=== PATIENT | female | born 1995 | race Caucasian/White ===

== ENCOUNTER 2016-07-14 08:24 | Emergency (ER) | payer SELFPAY ==
[2016-07-14 08:55] VITALS: TEMP 98; BMI 24.5
--- NOTE | 2016-07-14 09:28 | DIRPT ---
CLINICAL DATA: Status post fall down steps 2 days ago striking the posterior aspect of the knee; pain is worse with walking or standing ; images were obtained with the patient supine. EXAM: RIGHT KNEE - COMPLETE 4+ VIEW COMPARISON: None in PACs FINDINGS: The bones of the right knee are adequately mineralized. There is no acute fracture nor dislocation. There is no significant degenerative change. There is no joint effusion. The proximal fibula is intact. IMPRESSION: There is no acute or significant chronic bony abnormality of the right knee. If the patient's symptoms persist and remain unexplained, MRI may be a useful next imaging step. Electronically Signed By: Jaswinder Paul M.D. On: 07/14/2016 09:25
--- NOTE | 2016-07-14 11:18 | EDPRACDOC ---
- General Information Chief Complaint: Fall Stated Complaint: FALL (RT LEG PAIN) Time Seen by Provider: 07/14/16 11:10 Information Source: Patient Home Medications: Home Medications Azithromycin [Zithromax] 250 mg PO DAILY #6 tablet 05/04/16 Prednisone [Sterapred 10 mg/6 day pack] 21 tab PO DIR #1 pack 05/04/16 Tussionex [Tussionex Oral Suspension] 5 ml PO BID PRN #120 ml 05/04/16 Hydrocodone Bit/Acetaminophen [Lortab 5/325] 1 tab PO Q4-6H PRN #15 tab Hydrocodone Bit/Acetaminophen [Lortab 5/325] 1 tab PO Q4-6H PRN #15 tab Allergies/Adverse Reactions: Allergies Allergy/AdvReac Type Severity Reaction Status Date / Time ketorolac tromethamine Allergy Nausea only Verified 07/14/16 08:53 [From Toradol] tramadol Allergy Nausea only Verified 07/14/16 08:53 - History of Present Illness Onset: yesterday HPI: Pt states she fell on stairs yesterday and injured R knee. Denies numbness, hip , back pain, leg pain. Knee Problem Location: Right Mechanism: Reports: Blunt Trauma Circumstances: Reports: Fall, Spontaneous Relevant History: Reports: None Able to Bear Weight: Limited Pain Severity: Reports: Moderate Associated Signs & Symptoms: Reports: None ED Past Medical History - History Reviewed Yes Nurses notes reviewed and agree except as marked - Patient Medical History GI/ History: Reports: Kidney Stones Psychological History: Denies: Depression Additional Past Medical History: CHRONIC PAIN - Social Medical History Smoking Status: Heavy tobacco smoker (5 or more cigarettes/day or daily pipe/ cigar) ETOH: Social Substance Abuse: None EDM Review of Systems - Review of Systems Constitutional: No Symptoms Reported. negative: Fever, Chills, Weakness, Fatigue, Loss of Appetite Respiratory: No Symptoms Reported. negative: Cough, Brassy Cough, Barky Cough, Shortness of Breath, Wheezing, Hemoptysis Cardiovascular: No Symptoms Reported. negative: Chest Pain, Palpitations, Syncope, Edema, Orthopnea, PND, Skin Mottling, Cyanosis Gastrointestinal: No Symptoms Reported. negative: Pain, Constipation, Nausea, Vomiting, Diarrhea, Melena, Formula Intolerance Neurological: No Symptoms Reported. negative: Headache, Dizziness, Seizure, Numbness, Weakness, Speech Difficulty, Gait Difficulty Musculoskeletal: Knee Integumentary: No Symptoms Reported. negative: Itching, Rash, Bruising, Wound Allergic/Immunologic: No Symptoms Reported. negative: Hives, Itching Hematologic: No Symptoms Reported. negative: Lymphadenopathy, Easy Bruising, Easy Bleeding Psychiatric: No Symptoms Reported. negative: Anxiety, Depression, Hallucinations, Insomnia, Suicidal - Physical Exam Constitutional: Alert Oriented to: Time, Person, Place Last recorded Vital Signs: Last Vital Signs Temp 98 F 07/14/16 08:54 Pulse 74 07/14/16 08:54 Resp 20 07/14/16 08:54 BP 113/55 L 07/14/16 08:54 Pulse Ox 98 07/14/16 08:54 Oxygen Pulse Oxygen Saturation 98 O2 Device Room Air Oxygen Flow Rate Fraction of Inspired Oxygen ( FIO2) - HEENT Head: Normal ( normocephalic) - Respiratory/Cardiovascular Respiratory: Normal - CTA (BBS clear to auscultation without adventitious sounds ) Cardiovascular: Normal (RRR without murmur, gallop or rub) - Musculoskeletal Extremities: Normal (Normal tone, Pulses 2+ No cyanosis or edema, FROM) - Integumentary Skin: Normal, Warm, Dry Lymphatics: Normal (no adenopathy) - Neurologic Memory Impaired: Normal Motor Function: Normal (Normal tone, Pulses 2+ No cyanosis or edema, FROM) Mood Description: Normal Perception: Normal ED Knee Problem Phys Exam - Musculoskeletal Knee: Limited ROM Knee Ligaments: Normal Knee Meniscus: Normal Thigh: Normal Lower Leg: Normal Distal Function/Circulation: Normal - Integumentary Skin: Normal Lymphatics: Normal - Differential Diagnosis Contusion, Meniscus Injury - Diagnostic Imaging Knee Image interpreted by: Radiologist IMPRESSION: There is no acute or significant chronic bony abnormality of the right knee. If the patient's symptoms persist and remain unexplained, MRI may be a useful next imaging step. Decision Time to Discharge: 11:18 - Departure Disposition: Home Condition: Good Final Diagnosis: Sprain of right knee Qualifiers: Encounter type: initial encounter Involved ligament of knee: unspecified ligament Qualified Code(s): S83.91XA - Sprain of unspecified site of right knee , initial encounter Instructions: RICE: Routine Care for Injuries, Knee Sprain (ED) Education/Counseling Given To: Patient Education/Counseling Given Regarding: Diagnosis, Treatment, Follow Up Referrals: None,No Provider [Primary Care Provider] - One Week Amaury Hernandez MD [Staff Physician] - One Week Prescriptions: Hydrocodone Bit/Acetaminophen [Lortab 5/325] 1 tab PO Q4-6H PRN #15 tab PRN Reason: Pain Additional Instructions: Elevate affected area as much as possible, apply cold compresses 20 mins at a time as needed for pain or swelling, wear splint until you follow up with orthopedics.
[2016-07-14 11:32] VITALS: BP 107/61; PULSE 88
== END 2016-07-14 11:28 | disposition home or self-care (01) ==
LOC: ED 08:24 → EDMC 11:28
DX: S83.91XA Sprain of unspecified site of right knee, initial encounter (principal); W10.9XXA Fall (on) (from) unspecified stairs and steps, initial encounter; F17.200 Nicotine dependence, unspecified, uncomplicated
CPT/HCPCS: 99283

== ENCOUNTER 2016-07-28 19:25 | Emergency (ER) | payer SELFPAY ==
[2016-07-28 19:50] VITALS: BMI 25.0
[2016-07-28 20:04] LABS: AUTOMATED BASOPHIL 0.5 % (0-2); AUTOMATED EOSINOPHIL 1.7 % (0-5); AUTOMATED LYMPH 29.2 % (17-44); AUTOMATED MONOCYTE 9.3 % (3-10); AUTOMATED NEUTROPHIL 59.3 % (45-76); MPV 7.1 fL (7.4-10.4)
[2016-07-28 20:15] LABS: PARTIAL THROMB. TIME 28.6 SEC (22-35)
[2016-07-28 20:22] LABS: BLOOD UREA NITROGEN 13 MG/DL (7-17); CALC CORRECTED 8.8 MG/DL (8.4-10.2); CALCIUM 8.4 MG/DL (8.4-10.2); CALCULATED OSMOLALITY 270 MOs/Kg (270-290); CHLORIDE 106 mEq/L (98-107); GLUCOSE 79 MG/DL (70-99); SODIUM LEVEL 141 mEq/L (137-146); TOTAL PROTEIN 6.6 G/DL (6.3-8.2)
[2016-07-28 22:01] VITALS: TEMP 98
--- NOTE | 2016-07-28 22:45 | DIRPT ---
CLINICAL DATA: Acute onset of sharp mid chest pain and pressure. Difficulty breathing. Productive cough. Initial encounter. EXAM: CHEST 2 VIEW COMPARISON: Chest radiograph performed 05/04/2016 FINDINGS: The lungs are well-aerated and clear. There is no evidence of focal opacification, pleural effusion or pneumothorax. The heart is normal in size; the mediastinal contour is within normal limits. No acute osseous abnormalities are seen. IMPRESSION: No acute cardiopulmonary process seen. Electronically Signed By: Velasquez Armendariz M.D. On: 07/28/2016 22:43
[2016-07-28 23:11] VITALS: PULSE 80
--- NOTE | 2016-07-28 23:13 | EDPRACDOC ---
- General Information Chief Complaint: Chest Pain Stated Complaint: CHEST PAIN Time Seen by Provider: 07/28/16 22:07 Information Source: Patient Mode of Arrival: Car Home Medications: Home Medications Prednisone [Deltasone] 20 mg PO BID #10 tablet 07/28/16 Allergies/Adverse Reactions: Allergies Allergy/AdvReac Type Severity Reaction Status Date / Time ketorolac tromethamine Allergy Nausea only Verified 07/28/16 19:50 [From Toradol] tramadol Allergy Nausea only Verified 07/28/16 19:50 - History of Present Illness Onset: 1 DAY HPI: PT WITH SUBSTERNAL CHEST PAIN. 2-3 DAYS. SOME WHEEZING. NO FEVER. SOME NAUSEA. PAIN MODERATE TO SEVERE, PRESSURE. + SMOKER. DOES NOT HAVE INHALER. ED Past Medical History - Patient Medical History GI/ History: Reports: Kidney Stones Psychological History: Denies: Depression Additional Past Medical History: CHRONIC PAIN Surgical History: Denies: Hysterectomy - Social Medical History Smoking Status: Heavy tobacco smoker (5 or more cigarettes/day or daily pipe/ cigar) EDM Review of Systems - Review of Systems ROS Negative Except as Marked: Yes All systems reviewed and were negative except as marked Constitutional: No Symptoms Reported Gastrointestinal: No Symptoms Reported Genitourinary: No Symptoms Reported Neurological: No Symptoms Reported Integumentary: No Symptoms Reported - Physical Exam Constitutional: Alert (Awake), No apparent distress Oriented to: Time, Person, Place Last recorded Vital Signs: Last Vital Signs Temp 98.0 F 07/28/16 22:00 Pulse 83 07/28/16 21:58 Resp 18 07/28/16 21:58 BP 113/73 07/28/16 21:58 Pulse Ox 97 07/28/16 21:58 Oxygen Pulse Oxygen Saturation 97 O2 Device Room Air Oxygen Flow Rate Fraction of Inspired Oxygen ( FIO2) - HEENT Head: Normal ( normocephalic) Eye Exam: Normal (PERRL, EOMI, Sclera white) Oropharynx: Normal (Pharynx:Moist without exudate,Gums-no swelling) Nose: No Symptoms Reported (septum midline) Neck: Normal (FROM, trachea at midline) - Respiratory/Cardiovascular Respiratory: Wheezes (B/L, NO DISTRESS) Cardiovascular: Normal (RRR without murmur, gallop or rub) - GI Auscultation: Normal (NABS) Palpation: Normal (Soft,No rebound or guarding, non distended) Tenderness: Non tender Higgins's Sign: Negative - Musculoskeletal Back: Normal (Non-Tender) Extremities: Normal (Normal tone, Pulses 2+ No cyanosis or edema, FROM) - Integumentary Skin: Normal, Warm, Dry Lymphatics: Normal (no adenopathy) - Neurologic Memory Impaired: Normal Motor Function: Normal (Normal tone, Pulses 2+ No cyanosis or edema, FROM) Cranial Nerve: Normal (CN II-X11 intact sensation, strength 5/5) Cerebellar: Normal Mood Description: Normal Perception: Normal ED Chest Pain Exam - Respiratory/Cardiovascular Respiratory: Wheezes Cardiovascular/Chest: Normal Chest Palpation: Tender, Reproduces Pain (STERNAL) - Action ASA given in the ED: No Aspirin therapy held due to: Other-specify below* (NOT THOUGHT TO BE CARDIAC) - Results 07/28/16 19:33 07/28/16 19:33 WBC 15.8 xk/uL (3.8-10.8) H 07/28/16 19:33 RBC 4.09 xM/uL (4.20-5.40) L 07/28/16 19:33 Hgb 11.7 g/dL (12.0-16.0) L 07/28/16 19:33 Hct 35.1 % (36-47) L 07/28/16 19:33 MCV 86 fL (81-99) 07/28/16 19:33 MCH 28.7 pg (27-32) 07/28/16 19:33 MCHC 33.4 g/dl (33-36) 07/28/16 19:33 RDW 15.7 % (11.5-14.5) H 07/28/16 19:33 Plt Count 319 xk/uL (130-400) 07/28/16 19:33 MPV 7.1 fL (7.4-10.4) L 07/28/16 19:33 Neut % (Auto) 59.3 % (45-76) 07/28/16 19:33 Lymph % (Auto) 29.2 % (17-44) 07/28/16 19:33 [place] % (Auto) 9.3 % (3-10) 07/28/16 19:33 Eos % (Auto) 1.7 % (0-5) 07/28/16 19:33 Baso % (Auto) 0.5 % (0-2) 07/28/16 19:33 Absolute Neuts (auto) 9.32 xk/uL (1.7-8.2) H 07/28/16 19:33 Absolute Lymphs (auto) 4.58 xk/uL (0.65-4.75) 07/28/16 19:33 PT 10.5 SEC (9.2-11.2) 07/28/16 19:33 INR 1.0 07/28/16 19:33 APTT 28.6 SEC (22-35) 07/28/16 19:33 Sodium 141 mEq/L (137-146) 07/28/16 19:33 Potassium 3.2 mEq/L (3.5-5.1) L 07/28/16 19:33 Chloride 106 mEq/L (98-107) 07/28/16 19:33 Carbon Dioxide 26 mMOL/L (22-33) 07/28/16 19:33 Anion Gap 12 mEq/L (8-16) 07/28/16 19:33 BUN 13 MG/DL (7-17) 07/28/16 19:33 Creatinine 0.60 MG/DL (0.52-1.04) 07/28/16 19:33 Estimated GFR (MDRD) > 60 mL/min (>=60) 07/28/16 19:33 Glucose 79 MG/DL (70-99) 07/28/16 19:33 Calculated Osmolality 270 MOs/Kg (270-290) 07/28/16 19:33 Calcium 8.4 MG/DL (8.4-10.2) 07/28/16 19:33 Corrected Calcium 8.8 MG/DL (8.4-10.2) 07/28/16 19:33 Total Bilirubin 0.2 MG/DL (0.2-1.3) 07/28/16 19:33 AST 42 IU/L (14-36) H 07/28/16 19:33 ALT 55 IU/L (9-52) H 07/28/16 19:33 Alkaline Phosphatase 48 IU/L (38-126) 07/28/16 19:33 Troponin I < 0.01 ng/mL (<.04) 07/28/16 19:33 Tjg-X-Ohyzbxpbpof Pept 109 pg/mL (0-450) 07/28/16 19:33 Total Protein 6.6 G/DL (6.3-8.2) 07/28/16 19:33 Albumin 3.6 G/DL (3.5-5.0) 07/28/16 19:33 Lab Results 07/28/16 07/28/16 07/28/16 19:33 19:33 19:33 WBC 15.8 H RBC 4.09 L Hgb 11.7 L Hct 35.1 L MCV 86 MCH 28.7 MCHC 33.4 RDW 15.7 H Plt Count 319 MPV 7.1 L Neut % (Auto) 59.3 Lymph % (Auto) 29.2 [place] % (Auto) 9.3 Eos % (Auto) 1.7 Baso % (Auto) 0.5 Absolute Neuts (auto) 9.32 H Absolute Lymphs (auto) 4.58 PT 10.5 INR 1.0 APTT 28.6 Sodium 141 Potassium 3.2 L Chloride 106 Carbon Dioxide 26 Anion Gap 12 BUN 13 Creatinine 0.60 Estimated GFR (MDRD) > 60 Glucose 79 Calculated Osmolality 270 Calcium 8.4 Corrected Calcium 8.8 Total Bilirubin 0.2 AST 42 H ALT 55 H Alkaline Phosphatase 48 Troponin I < 0.01 Uwp-V-Fzrcwghzmhm Pept 109 Total Protein 6.6 Albumin 3.6 Laboratory Results - last 24 hr 07/28/16 07/28/16 07/28/16 19:33 19:33 19:33 WBC 15.8 H RBC 4.09 L Hgb 11.7 L Hct 35.1 L MCV 86 MCH 28.7 MCHC 33.4 RDW 15.7 H Plt Count 319 MPV 7.1 L Neut % (Auto) 59.3 Lymph % (Auto) 29.2 Kinney % (Auto) 9.3 Eos % (Auto) 1.7 Baso % (Auto) 0.5 Absolute Neuts (auto) 9.32 H Absolute Lymphs (auto) 4.58 PT 10.5 INR 1.0 APTT 28.6 Sodium 141 Potassium 3.2 L Chloride 106 Carbon Dioxide 26 Anion Gap 12 BUN 13 Creatinine 0.60 Estimated GFR (MDRD) > 60 Glucose 79 Calculated Osmolality 270 Calcium 8.4 Corrected Calcium 8.8 Total Bilirubin 0.2 AST 42 H ALT 55 H Alkaline Phosphatase 48 Troponin I < 0.01 Pni-U-Tnhctyecrkf Pept 109 Total Protein 6.6 Albumin 3.6 Laboratory Results 07/28/16 19:33 07/28/16 19:33 - EKG EKG #1 EKG Time: 19:43 -: Yes EKG interpreted by me Rate: bpm: 86 [place]: Normal Block: RBBB (INCOMPLETE) ST: Normal Comments: ABNORMAL EKG Decision Time to Discharge: 23:15 - Departure Yes I personally saw and evaluated the patient. Disposition: Home Condition: Stable Final Diagnosis: Bronchospasm, Costochondritis, acute Instructions: Chest Wall Pain Education/Counseling Given To: Patient Education/Counseling Given Regarding: Diagnosis, Treatment Referrals: None,No Provider [Primary Care Provider] - One Week Prescriptions: Prednisone [Deltasone] 20 mg PO BID #10 tablet
[2016-07-28] MEDS ORDERED: PREDNISONE 20 MG TAB PO ONE (23:14)
[2016-07-28] MEDS ORDERED: ALBUTEROL 6.7 GM MDI INH ONE (23:14)
[2016-07-28] MEDS ORDERED: ACETAMINOPHEN 325 MG/TAB TABLET PO ONE (23:43)
[2016-07-28] MEDS ORDERED: IBUPROFEN 600 MG TAB PO ONE (23:43)
[2016-07-28 23:51] VITALS: BP 93/59
== END 2016-07-28 23:48 | disposition home or self-care (01) ==
LOC: ED 19:25
DX: M94.0 Chondrocostal junction syndrome [Tietze] (principal); J98.01 Acute bronchospasm
CPT/HCPCS: 36415; 71020; 80053; 83880; 84484; 85025; 85610; 85730; 93005; 94640; 99284; J3490

== ENCOUNTER 2016-08-09 21:26 | Emergency (ER) | payer SELFPAY ==
[2016-08-09 21:27] VITALS: BMI 25.0
[2016-08-09 21:39] VITALS: TEMP 97.6
--- NOTE | 2016-08-09 22:35 | DIRPT ---
CLINICAL DATA: Left wrist pain after injury. Fall 2 days prior with persistent pain and redness. EXAM: LEFT WRIST - COMPLETE 3+ VIEW COMPARISON: None. FINDINGS: No fracture or dislocation. The alignment and joint spaces are maintained. Scaphoid is intact. No focal soft tissue abnormality. IMPRESSION: No fracture or dislocation of the left wrist. Electronically Signed By: Ami Perry M.D. On: 08/09/2016 22:33
--- NOTE | 2016-08-09 22:48 | EDPRACDOC ---
- General Information Chief Complaint: Upper Extremity Injury Stated Complaint: LT WRIST PAIN CRACKED AT WORK Time Seen by Provider: 08/09/16 22:40 Mode of Arrival: Car Home Medications: Home Medications Naproxen Sodium 500 mg PO BID PRN #20 tablet.sa 08/09/16 Allergies/Adverse Reactions: Allergies Allergy/AdvReac Type Severity Reaction Status Date / Time ketorolac tromethamine Allergy Nausea only Verified 08/09/16 21:39 [From Toradol] tramadol Allergy Nausea only Verified 08/09/16 21:39 - History of Present Illness Onset: 2 DAYS HPI: PT COMPLAINS OF PAIN IN LEFT WRIST, STATES SHE FELL 2 DAYS AGO, STATES TRIPPED, NO OTHER INJURY, STATES PAIN IS WORSE WITH MOVEMENT, STATES UNABLE TO LIFT DUE TO PAIN. PT STATES TOOK "A MOTRIN" WITHOUT RELIEF. Location: Reports: Dorsal, Ulnar Dominant Side: Reports: Right Mechanism: Reports: FOOSH Circumstances: Reports: Fall Pain Severity: Reports: Severe Associated Signs and Symptoms: Denies: Laceration, Numbness, Weakness, Hand Pain , Forearm Pain, Elbow Pain ED Past Medical History - History Reviewed Yes Nurses notes reviewed and agree except as marked - Patient Medical History GI/ History: Reports: Kidney Stones Psychological History: Denies: Depression Additional Past Medical History: CHRONIC PAIN Surgical History: Denies: Hysterectomy - Social Medical History Smoking Status: Heavy tobacco smoker (5 or more cigarettes/day or daily pipe/ cigar) ETOH: None Substance Abuse: None EDM Review of Systems - Review of Systems Neurological: negative: Dizziness, Numbness, Weakness Musculoskeletal: Wrist Integumentary: No Symptoms Reported - Physical Exam Constitutional: Alert (Awake), No apparent distress Oriented to: Time, Person, Place Last recorded Vital Signs: Last Vital Signs Temp 97.6 F 08/09/16 21:35 Pulse 79 08/09/16 21:35 Resp 20 08/09/16 21:35 BP 114/51 L 08/09/16 21:35 Pulse Ox 98 08/09/16 21:35 Oxygen Pulse Oxygen Saturation 98 O2 Device Room Air Oxygen Flow Rate Fraction of Inspired Oxygen ( FIO2) - HEENT Head: Normal ( normocephalic) - Integumentary Skin: Normal, Warm, Dry - Neurologic Memory Impaired: Normal Motor Function: Normal (Normal tone, Pulses 2+ No cyanosis or edema, FROM) Cranial Nerve: Normal (CN II-X11 intact sensation, strength 5/5) Cerebellar: Normal Mood Description: Normal Perception: Normal ED Wrist Problem Exam Wrist Symptoms: Limited ROM, Moderate Tenderness. negative: Swelling, Deformity Hand Symptoms: Normal. negative: Swelling, Deformity Forearm Symptoms: Normal. negative: Swelling, Deformity Distal Function/Circulation: Normal, Capillary Refill. negative: Motor Deficit , Pulse Deficit, Sensory Deficit - Integumentary Skin: Normal ED Wrist Problem MDM - Differential Diagnosis Differential Diagnosis: Contusion, Fracture-Radius/Ulna, Sprain Decision Time to Discharge: 22:49 - Departure Disposition: Home Condition: Stable Final Diagnosis: Left wrist sprain Instructions: Wrist Sprain (ED) Education/Counseling Given To: Patient Education/Counseling Given Regarding: Diagnosis, Treatment, Prognosis, Follow Up Referrals: None,No Provider [Primary Care Provider] - One Week Prescriptions: New Naproxen Sodium 500 mg PO BID PRN #20 tablet.sa PRN Reason: Pain Discontinued Prednisone [Deltasone] 20 mg PO BID #10 tablet Additional Instructions: WEAR SPLINT, ELEVATE YOUR WRIST AND APPLY COLD COMPRESSES NEEDED FOR PAIN OR SWELLING, RETURN TO THE ED FOR ANY WORSENING SYMPTOMS OR CONCERNS.
[2016-08-09] MEDS ORDERED: IBUPROFEN 800 MG TAB PO ONE (22:51)
[2016-08-09 23:41] VITALS: BP 114/55; PULSE 82
== END 2016-08-09 23:35 | disposition home or self-care (01) ==
LOC: ED 21:26
DX: S63.502A Unspecified sprain of left wrist, initial encounter (principal); W01.0XXA Fall on same level from slipping, tripping and stumbling without subsequent striking against object, initial encounter; Y93.9 Activity, unspecified
CPT/HCPCS: 73110; 99283; J3490